=== PATIENT | female | born 1945 | race Caucasian/White ===

== ENCOUNTER 2019-08-11 16:50 | Emergency (ER) | payer OTHER, SELFPAY ==
[2019-08-11 16:56] VITALS: BP 146/90; PULSE 119; RESP 15; TEMP 37.2; O2SAT 96; BMI 29.2
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
[2019-08-11 19:36] VITALS: BP 132/79; PULSE 94; RESP 16; O2SAT 96
--- NOTE | 2019-08-11 19:58 | PC.NURSE ---
two lacerations to the right index finger and one laceration to the right thumb. bleeding controlled. provider aware and wants lacerations bandaged with a bandaid.
== END 2019-08-11 19:36 | disposition home or self-care (01) ==
PROVIDERS: Emergency Provider Emergency Medicine
DX: S61.011A Laceration without foreign body of right thumb without damage to nail, initial encounter (principal); W25.XXXA Contact with sharp glass, initial encounter
CPT/HCPCS: 99283